=== PATIENT | female | born 1995 | race African-American/Black ===

== ENCOUNTER 2024-02-29 16:20 | Emergency (ER) | payer SELFPAY ==
[~2024-02-29] VITALS: Ht 175.3 cm; Wt 72.0 kg
[2024-02-29 16:39] VITALS: O2SAT 100
[2024-02-29] MEDS: ONDANSETRON 4MG ODT PO ONE (18:56)
[2024-02-29] MEDS: ACETAMINOPHEN 325MG TABLET PO ONE (18:57)
[2024-02-29] MEDS ORDERED: METH-653 MT (21:08)
[2024-02-29] MEDS: IBUPROFEN 600MG TABLET PO ONE (21:11)
[2024-02-29 21:25] VITALS: BP 105/60; PULSE 71; RESP 16; TEMP 98.9
== END 2024-02-29 21:25 | disposition home or self-care (01) ==
LOC: ER 16:20
DX: R51.9 Headache, unspecified (principal); M54.2 Cervicalgia; V49.9XXA Car occupant (driver) (passenger) injured in unspecified traffic accident, initial encounter; Y93.89 Activity, other specified; Y92.89 Other specified places as the place of occurrence of the external cause; Y99.8 Other external cause status
CPT/HCPCS: 99284; 70450; 72125; Q0162